=== PATIENT | female | born 1945 | race Caucasian/White ===

== ENCOUNTER → 2016-11-25 | Outpatient (CLI) | payer MEDICARE, OTHER ==
[~2016-11-25] MED LIST: ACCUPRIL PO; ASPIRIN325 M1 PO; CELEXA PO; CIPRO PO; DITROPAN5 MG DOB; LOMOTIL TABLET1 TAB PO; MULTI-VITAMIN1 EAC1 PO; NORCO 7.5/325 T1 TAB PO; PHENERGAN PO; PRAVACHOL PO; PRAVASTATIN SOD40 MG PO; PROPRANOLOL HCL10 MG PO; PROPRANOLOL PO; QUINAPRIL HCL10 MG PO; VITAMIN D 4001 UDTAB PO; VITAMIN D50000 UNIT PO; WELLBUTRIN XL PO; ZOLOFT
--- NOTE | ~2016-11-25 | US84 ---
[id number] [facility]. [facility] [address] [place], [place] [address] [id number] O MR#: [id number] Acc #: [id number] NAME: RASHEEDA MORATAYA : 1945 SEX: F STUDY DATE/TIME: 11/25/2016 17:34 UNIT: [facility] ROOM: STUDY DESCRIPTION: US LE Veins Complete Rob Stdy Attending Physician: Hemanth Cruz M.D. Referring Physician: Hemanth Cruz M.D. Ordering Physician: Hemanth Cruz M.D. Primary Care Physician: Hemanth Cruz M.D. MEDICAL IMAGING REPORT This report is preliminary unless electronic signature is present EXAM Bilateral lower extremity venous duplex 11/25/2016 HISTORY Bilateral lower extremity pain and edema for 1 week with bruising. Evaluate for deep vein thrombosis. TECHNIQUE Venous ultrasound examination of both lower extremities was performed using grayscale, spectral Doppler and color flow Doppler imaging. FINDINGS The examination is negative. There is no evidence of deep venous thrombus from the groin to the lower calf bilaterally. Visualized greater saphenous veins are also patent. IMPRESSION Negative examination. No evidence of lower extremity deep venous thrombosis. Dictated by... Cale Ervin M.D. THIS IS AN ELECTRONICALLY VERIFIED REPORT Cale Ervin M.D. at 11/26/2016 2:13 PM KRT/suhas TD: 11/25/2016 23:11 JOB #: [id number] MEDICAL IMAGING REPORT Page 1 of 1 COPY
== END | disposition home or self-care (01) ==
LOC: CNIV 16:00
DX: M79.605 Pain in left leg (principal); M79.604 Pain in right leg; M79.89 Other specified soft tissue disorders
CPT/HCPCS: 93970